=== PATIENT | female | born 1995 | race Caucasian/White ===

== ENCOUNTER 2020-10-12 19:50 | Emergency (ER) | payer SELFPAY ==
[~2020-10-12] VITALS: Ht 160 cm; Wt 54.6 kg
--- NOTE | 2020-10-12 20:59 | ED.ADGEN ---
Past Medical History Past Medical History: Other Additional Past Medical Histor: MC @6 WEEKS Past Surgical History: No Surgical History Smoking Status: Current Every Day Smoker Alcohol Use: Rarely General Adult EDM: Chief Complaint: OTHER COMPLAINTS HPI: HPI: Patient is a 24 year old female who presents emergency department with concerns of irregular menstrual cycles. Patient states that last month her period only lasted 2 days and was really bright red blood. She states that her menstrual cycle was from September 12, 2020 until September 14, 2020. She has not had a menstrual cycle yet this month. Patient reports concerns of . She denies any nausea, vomiting, abdominal pain, back pain, dysuria, hematuria, irregular vaginal discharge, vaginal odor, or concerns of a sexually transmitted infection. She currently denies any pain. Patient reports that she has gained a significant amount of weight recently but denies any increase in stress. Review of Systems: Review of Systems: Complete ROS is negative unless otherwise noted in HPI. Allergies: Allergies: Allergies Coded Allergies Type Severity Reaction Last Updated Verified No Known Drug Allergies 10/12/20 No Physical Exam: PE: See Above Constitutional: Well developed, well nourished, no acute distress, non-toxic appearance. [] HENT: Normocephalic, atraumatic, bilateral external ears normal, nose normal. [] Eyes: PERRLA, EOMI, conjunctiva normal, no discharge. [] Neck: Normal range of motion, no stridor. [] Cardiovascular:Heart rate regular rhythm Lungs & Thorax: Respirations even and unlabored, no retractions, no respiratory distress Skin: Warm, dry, no erythema, no rash. [] Extremities: No cyanosis, ROM intact, no edema. [] Neurologic: Alert and oriented X 3, no focal deficits noted. [] Psychologic: Affect normal, judgement normal, mood normal. [] Current Patient Data: Labs: Laboratory Tests Test 10/12/20 19:59 10/12/20 20:14 POC Urine HCG, Qualitative Hcg negative (Negative) Maternal Serum HCG Beta Subunit < 1 mIU/mL (0-5) Vital Signs: Vital Signs Date Time Temp Pulse Resp B/P (MAP) Pulse Ox O2 Delivery O2 Flow Rate FiO2 10/12/20 21:06 76 16 114/60 (78) 99 Room Air 10/12/20 20:05 98.6 98.6 EKG: EKG: [] Heart Score: C/O Chest Pain: No Risk Scores: Score 0 - 3: 2.5% MACE over next 6 weeks - Discharge Home Score 4 - 6: 20.3% MACE over next 6 weeks - Admit for Clinical Observation Score 7 - 10: 72.7% MACE over next 6 weeks - Early Invasive Strategies Radiology/Procedures: Radiology/Procedures: [] Course & Med Decision Making: Course & Med Decision Making Pertinent Labs and Imaging studies reviewed. (See chart for details) Patient presented emergency room with concerns of irregular menstrual cycles and concerns of possible . Urine and blood hCG test were negative. Encouraged patient to follow-up with her PROGRAM ARCHITECT for further evaluation of abnormal menstrual cycles. I will provide patient with our PROGRAM ARCHITECT on-call's information for follow-up as well. Return to the ER if symptoms worsen or fever develops. Patient verbalized an understanding of home care, medications, follow-up, and return to ED instructions and was in agreement with the plan of care. []The patient was seen and interviewed as well as examined at the bedside. The chart was reviewed. The case was discussed. Agree with the plan of care. Dragon Disclaimer: Dragon Disclaimer: This electronic medical record was generated, in whole or in part, using a voice recognition dictation system. Departure Departure Impression: Primary Impression: Menstrual cycle problem Disposition: 01 HOME / SELF CARE / HOMELESS Condition: STABLE Referrals: NO PCP (PCP) Patient Instructions: Athletic Amenorrhea-SportsMed Additional Instructions: Follow up with your OBGyn or Dr. Rob for further evaluation of your menstrual irregularities. Return to the ER if symptoms worsen or fever develops. DEBRA MACHUCA APRN October 12, 2020 20:59 KHADIJAH HUDSON I DO October 16, 2020 18:50
[2020-10-12 21:06] VITALS: BP 114/60
== END 2020-10-12 21:07 | disposition home or self-care (01) ==
LOC: ER 19:50
DX: N92.5 Other specified irregular menstruation (principal); F17.200 Nicotine dependence, unspecified, uncomplicated
CPT/HCPCS: 36415; 81025; 84702; 99283